=== PATIENT | female | born 1995 | race Two or more races ===

== ENCOUNTER 2018-04-24 22:12 | Emergency (ER) | payer MEDICAID ==
[~2018-04-24] VITALS: Ht 160 cm; Wt 69.4 kg
--- NOTE | 2018-04-24 22:35 | NUR ---
PLACED IN ROOM 5A FOR ER EVAL
[2018-04-24 23:08] LABS: *URINE HCG, QUAL POSITIVE (NEGATIVE)
[2018-04-24 23:09] LABS: BASOPHILS % (AUTO) 0.5 % (0.0-2.0); EOSINOPHILS % (AUTO) 0.5 % (0.0-7.0); HEMATOCRIT 36.5 % (31.2-41.9); HEMOGLOBIN 12.7 g/dL (10.9-14.3); LYMPHOCYTES # (AUTO) 1.9 K/uL (20.0-40.0); LYMPHOCYTES % (AUTO) 24.8 % (20.5-51.5); MEAN CORPUSCULAR HEMOGLOBIN 30.5 uug (24.7-32.8); MEAN CORPUSCULAR HGB CONC 35 g/dL (32.3-35.6); MEAN CORPUSCULAR VOLUME 87.7 fL (75.5-95.3); MONOCYTES # (AUTO) 0.4 K/uL (2.0-10.0); MONOCYTES % (AUTO) 5.3 % (0.0-11.0); NEUTROPHILS # (AUTO) 5.4 K/uL (1.8-8.9); NEUTROPHILS % (AUTO) 68.9 % (38.5-71.5); PLATELET COUNT (AUTO) 326 K/uL (179-408); RED BLOOD CELL COUNT(AUTO) 4.17 MIL/uL (3.63-4.92); WHITE BLOOD COUNT (AUTO) 7.8 K/uL (3.8-11.8)
--- NOTE | 2018-04-24 23:16 | NUR ---
FITNESS TRAINER AT BEDSIDE.ULTRASOUND IN PROGRESS
--- NOTE | 2018-04-24 23:50 | NUR ---
Dr. Avila on the phone speaking to Dr. Lombardo.
--- NOTE | 2018-04-25 00:04 | NUR ---
PT D/C HOME WITH ACI GIVEN AND EXPLAINED TO PT.SHE VERBALIZED UNDERSTANDING.NO PAIN
[2018-04-25 00:13] VITALS: BP 114/71
== END 2018-04-25 00:14 | disposition home or self-care (01) ==
LOC: ER 22:14
DX: O03.4 Incomplete spontaneous abortion without complication (principal); O99.330 Smoking (tobacco) complicating pregnancy, unspecified trimester; O99.519 Diseases of the respiratory system complicating pregnancy, unspecified trimester; J45.909 Unspecified asthma, uncomplicated
CPT/HCPCS: 36415; 76856; 84703; 85025; A4663

== ENCOUNTER 2018-06-14 04:04 | Emergency (ER) | payer MEDICAID ==
[~2018-06-14] VITALS: Ht 157.5 cm; Wt 69.4 kg
--- NOTE | 2018-06-14 04:19 | NUR ---
PT BIB [facility]. PT A/OX4, RESPONSIVE TO VERBAL AND TACTILE STIMULI. PT C/O LLQ ABD PAIN THAT STARTED 3 DAYS AGO, NO PROVOKING FACTOR, DOES NOT RADIATE, 9/10, CONSTANT. ABD NON-DISTENDED, ABD SOUNDS ACTIVE, AND SOFT TO TOUCH. UPON FURTHER QUESTIONING, PT STATES SHE HAD AN IN FEBRUARY AND WAS RECOMMENDED TO HAVE A D&C BACK IN BUT NEVER HAD THE PROCEDURE DONE. PER PT, SHE IS NO LONGER BLEEDING THROUGH HER VAGINA. SECONDARY COMPLAINT: ABSCESS ON GENITAL AREA. PT STATES SHE NOTICED THE ABSCESS YESTERDAY. DENIES C/P, SOB, N/V/D, DIZZINESS, HEADACHE.
--- NOTE | 2018-06-14 04:46 | NUR ---
MELY PETERSON AT BEDSIDE.
--- NOTE | 2018-06-14 04:48 | NUR ---
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
[2018-06-14] MEDS ORDERED: LIDOCAINE HCL 2% 20 ML VIAL TP ONE (05:00)
--- NOTE | 2018-06-14 05:00 | NUR ---
MELY PETERSON PERFORMED I&D OF THE ABSCESS ON R LABIA MAJORA.
--- NOTE | 2018-06-14 05:07 | NUR ---
US TECH PAGED.
[2018-06-14] MEDS ORDERED: HYDROCODONE/APAP 5-325MG TABLET ONE (05:11)
[2018-06-14] MEDS ORDERED: HYDROCODONE/APAP 5-325MG TABLET PO ONE (05:15)
--- NOTE | 2018-06-14 05:58 | NUR ---
ULTRASOUND AT BEDSIDE. ULTRASOUND IN PROGRESS.
--- NOTE | 2018-06-14 06:20 | NUR ---
Patient discharged to home in stable conditon. Written and verbal after care instructions given. Patient verbalizes understanding of instructions. PT D/C W/ PRESCRIPTION FOR ANALGESIC. ALL BELONGINGS W/ PT. PT SELF-AMBULATED WITHOUT DIFFICULTY.
[2018-06-14 06:21] VITALS: BP 128/70
== END 2018-06-14 06:21 | disposition home or self-care (01) ==
LOC: ER 04:10
DX: N75.1 Abscess of Bartholin's gland (principal); F15.10 Other stimulant abuse, uncomplicated; Z59.0 Homelessness
CPT/HCPCS: 36415; 56420; 76856; 84702; 99285; A4663